=== PATIENT | male | born 1975 | race Caucasian/White ===

== ENCOUNTER 2019-10-06 18:02 | Emergency (ER) | payer BC ==
[2019-10-06 18:17] VITALS: BP 166/82; PULSE 75; RESP 20; TEMP 98.3
[2019-10-06] MEDS ORDERED: KETOROLAC 60 MG/2 ML VIAL IM STA (18:31)
--- NOTE | 2019-10-06 19:04 | XR ---
EXAMINATION TYPE: XR ribs LT w pa chest xray DATE OF EXAM: 10/06/2019 COMPARISON: 05/21/2014 HISTORY: Chest pain TECHNIQUE: 5 views FINDINGS: Heart and mediastinum are normal. Lungs are clear of infiltrate. There is no pleural effusi on or pneumothorax. Left lung is clear. I see no rib fracture. IMPRESSION: Normal chest. Normal left ribs. No change.
[2019-10-06] MEDS ORDERED: LIDOCAINE 5% PATCH TOPICAL STA (19:29)
[2019-10-06] MEDS ORDERED: ACET/COD 300 MG/30 MG STARTER PACK 6 TAB BTL PO STA (19:40)
[2019-10-06] MEDS ORDERED: CYCLOBENZAPRINE 10MG STARTER 3 TAB BTL PO STA (19:48)
[2019-10-06] MEDS ORDERED: IBUPROFEN 600 MG STARTER PACK 4 TAB BTL PO STA (19:48)
--- NOTE | 2019-10-06 19:49 | ED ---
General Adult HPI - General Chief complaint: Extremity Injury, Upper Stated complaint: Rib pain Time Seen by Provider: 10/06/19 18:18 Source: patient, RN notes reviewed, old records reviewed Mode of arrival: ambulatory Limitations: no limitations - History of Present Illness Initial comments: 43-year-old male patient presents to EKG complaint of left rib pain. Patient was reportedly wrestling with his friend on Wednesday when he fell to the ground and hit his rib. Patient reports that the next day he began to experience a fair amount of pain. Patient reports that he was seen by his primary care provider have negative x-rays, states that the pain was improving. 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 Now the pain is worse in his left rib region is having some muscle spasms as well. Patient denies any other complaints at this time. Systemic: Pt denies fatigue, fever/chills, rash. Pt denies weakness, night sweats, weight loss. Neuro: Pt denies headache, visual disturbances, syncope or pre-syncope. HEENT: Pt denies ocular discharge or irritation, otalgia, rhinorrhea, pharyngitis or notable lymphadenopathy. Cardiopulmonary: Pt denies chest pain, SOB, heart palpitations, dyspnea on exertion. Abdominal/GI: Pt denies abdominal pain, n/v/d. : Pt denies dysuria, burning w/ urination, frequency/urgency. Denies new onset urinary or bowel incontinence. MSK: Pt denies myalgia, loss of strength or function in extremities. Neuro: Pt denies new onset weakness, paresthesias. - Related Data Previous Rx's Medication Instructions Recorded Ibuprofen [Motrin] 800 mg PO Q8HR PRN #20 tab 05/21/14 methylPREDNISolone Dose Pack 4 mg PO DIRECTED #21 package 05/21/14 [Medrol Dose Pack] Cyclobenzaprine [Flexeril] 10 mg PO TID #15 tab 10/06/19 Allergies Allergy/AdvReac Type Severity Reaction Status Date / Time Penicillins Allergy Unknown Verified 10/06/19 18:17 Review of Systems ROS Statement: Those systems with pertinent positive or pertinent negative responses have been documented in the HPI. ROS Other: All systems not noted in ROS Statement are negative. Past Medical History Past Medical History: No Reported History History of Any Multi-Drug Resistant Organisms: None Reported Past Surgical History: No Surgical Hx Reported Past Psychological History: No Psychological Hx Reported Smoking Status: Current every day smoker Past Alcohol Use History: Occasional Past Drug Use History: None Reported General Exam - General Exam Comments Initial Comments: Constitutional: NAD, AOX3, Pt has pleasant affect. HEENT: NC/AT, trachea midline, neck supple, no lymphadenopathy. Posterior pharynx non erythematous, without exudates. External ears appear normal, without discharge. Mucous membranes moist. Eyes PERRLA, EOM intact. There is no scleral icterus. No pallor noted. Cardiopulmonary: RRR, no murmurs, rubs or gallops, no JVD noted. Lungs CTAB in anterior and posterior patino. No peripheral edema. Abdominal exam: Abdomen soft and non-distended. Abdomen non-tender to palpation in all 4 quadrants. Bowel sounds active in LLQ. No hepatosplenomegaly. No ecchymosis Neuro: CN II-XII grossly intact. No nuchal rigidity. No raccon eyes, no meza sign, no hemotympanum. No cervical spinal tenderness. MSK: Left lateral rib region tender to palpation through the eighth through 10th rib region. No external skin changes. No posterior calf tenderness bilaterally, homans sign negative bilaterally. Posterior tibialis and radial pulse +2 bilaterally. Sensation intact in upper and lower extremities. Full active ROM in upper and lower extremities, 5/5 stregnth. Limitations: no limitations Course Vital Signs 10/06/19 18:13 Temperature 98.3 F Pulse Rate 75 Respiratory 20 Rate Blood Pressure 166/82 O2 Sat by Pulse 94 L Oximetry Medical Decision Making - Medical Decision Making 43-year-old male patient presents to EKG complaint of left rib pain. Patient was reportedly wrestling with his friend on Wednesday when he fell to the ground and hit his rib. Patient reports that the next day he began to experience a fair amount of pain. Patient reports that he was seen by his primary care provider have negative x-rays, states that the pain was improving. 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 Now the pain is worse in his left rib region is having some muscle spasms as well. Patient denies any other complaints at this time. Pt VSS, afebrile. Physical exam displayed: Left lateral rib region tender to palpation through the eighth through 10th rib region. No external skin changes. X-ray of ribs and PA chest was negative. Patient likely experiencing muscloskeletal strain. Patient will discharge with lidocaine patch, muscle relaxer, analgesia. Will follow up with primary care provider and return to ER if condition worsens. Case discussed patient seen by Dr. De Santiago. Disposition Clinical Impression: Muscle strain Disposition: HOME SELF-CARE Condition: Stable Instructions (If sedation given, give patient instructions): Muscle Strain (ED) Additional Instructions: take medications as directed. Use muscle relaxers as needed for muscle spasm. Use anti-inflammatories as needed for discomfort. Follow up with primary care provider tomorrow. Return to ER if condition worsens. Prescriptions: Cyclobenzaprine [Flexeril] 10 mg PO TID #15 tab Is patient prescribed a controlled substance at d/c from ED?: No Referrals: Uday Stringer MD [Primary Care Provider] - 1-2 days
== END 2019-10-06 20:20 | disposition home or self-care (01) ==
LOC: EC 18:02
DX: S29.011A Strain of muscle and tendon of front wall of thorax, initial encounter (principal); F17.200 Nicotine dependence, unspecified, uncomplicated; Z88.0 Allergy status to penicillin; W18.39XA Other fall on same level, initial encounter; Y93.72 Activity, wrestling
CPT/HCPCS: 71101; 99284; 96372; J1885